=== PATIENT | female | born 1965 | race Caucasian/White ===

== ENCOUNTER → 2022-09-30 | Outpatient (CLI) | payer OTHER ==
[~2022-09-30] MED LIST: AMIT25; CELE200 PO; CLIN300 PO; CRUTCH2 USE; HYDACE5 PO; LORA10ER PO; NAPR250; SULTRIDS PO; TRIA80TC TOP
== END ==
LOC: LAB 17:58 → LAB SHORT 17:58
DX: N39.0 Urinary tract infection, site not specified (principal)
CPT/HCPCS: 87086